=== PATIENT | female | born 1945 | race African-American/Black ===

== ENCOUNTER 2021-09-09 20:03 | Inpatient (IN) | payer MEDICARE, BC ==
[2021-09-09] MEDS ORDERED: Acetaminophen 650 MG Suppository PR PRN (23:02)
[2021-09-09] MEDS ORDERED: Ondansetron PF 4 MG/2 ML Vial IVP PRN (23:02)
[2021-09-09 23:15] LABS: Troponin I 0.097 ng/mL (< 0.028)
[2021-09-10] MEDS ORDERED: Sodium Chloride 0.9% 1,000 ML IV SCH (01:00)
[2021-09-10] MEDS: Sodium Chloride 0.9% 1,000 ML IV SCH ×3 (02:32→20:35)
[2021-09-10] MEDS: Ampicillin/Sulbactam 1.5 GM in Sodium Chloride 0.9% 100 ML IVPB SCH ×4 (02:54→20:35)
[2021-09-10 09:58] LABS: #Lymphocytes 0.8 thou/uL (1.20-3.40); #Monocytes 0.3 thou/uL (0.11-0.59); #Neutrophils 4.9 thou/uL (1.40-6.50); %Eosinophils 0.4 % (0.0-10.0); %Lymphocytes 12.5 % (21.0-51.0); Hemoglobin 8.3 g/dL (12.0-16.0); Mean Corpuscular HGB CONC 33.4 g/dL (32.0-36.0); Mean Corpuscular Hemoglobin 34.3 pg (27.0-31.0); Mean Platelet Volume 6.6 fL (7.4-10.4); Platelet Count 255 thou/uL (130-400); RBC Distribution Width 12.9 % (11.5-14.5); Red Blood Cell (RBC) Count 2.41 mill/uL (4.20-5.40)
[2021-09-10 10:14] LABS: ALT (SGPT) 15 U/L (8-55); AST (SGOT) 16 U/L (5-34); Albumin 2.5 g/dL (3.4-4.8); Alkaline Phosphatase 60 U/L (40-110); Anion Gap 12 mmol/L (10-20); BUN (Urea Nitrogen) 33 mg/dL (9.8-20.1); Bilirubin, Total 0.2 mg/dL (0.2-1.2); Calc. Creatinine Clearance 19 mL/min (70-130); Calcium 8.5 mg/dL (7.8-10.44); Carbon Dioxide 21 mmol/L (23-31); Chloride 116 mmol/L (98-107); Globulin 2.9 g/dL (2.4-3.5); Glucose 94 mg/dL (83-110); Potassium 4.3 mmol/L (3.5-5.1); Protein, Total 5.4 g/dL (5.8-8.1); Sodium 145 mmol/L (136-145)
[2021-09-10] MEDS ORDERED: Diazepam 2 MG TAB PO PRN (18:44)
[2021-09-10] MEDS ORDERED: Ondansetron ODT 4 MG TAB PO PRN (18:44)
[2021-09-10] MEDS ORDERED: Haloperidol 1 MG TAB PO PRN (18:44)
[2021-09-10] MEDS ORDERED: ALPRAZolam 0.25 MG TAB PO PRN (19:05)
[2021-09-10] MEDS: lamoTRIgine 25 MG TAB PO SCH (20:34)
[2021-09-10] MEDS ORDERED: Folic Acid 1 MG TAB PO SCH (21:00)
[2021-09-11] MEDS: Ampicillin/Sulbactam 1.5 GM in Sodium Chloride 0.9% 100 ML IVPB SCH ×3 (01:04→15:46)
[2021-09-11 05:46] LABS: Magnesium 1.9 mg/dL (1.6-2.6)
[2021-09-11] MEDS ORDERED: hydrALAZINE 20 MG/ML VIAL SLOW IVP PRN (06:35)
[2021-09-11] MEDS ORDERED: Ferrous Sulfate 325 MG TAB PO SCH (08:00)
[2021-09-11] MEDS: lamoTRIgine 25 MG TAB PO SCH (08:39)
[2021-09-11] MEDS ORDERED: Docusate 100 MG CAP PO SCH (09:00)
[2021-09-11] MEDS ORDERED: Aspirin 81 mg Enteric Coated Tablet PO SCH (09:00)
[2021-09-11] MEDS ORDERED: Amlodipine 10 MG TAB PO SCH (09:00)
[2021-09-11] MEDS ORDERED: Lansoprazole 3 MG/ML ORAL SUSPENSION PO SCH (09:00)
[2021-09-11] MEDS ORDERED: Docusate Sodium 100 MG/10 ML UDCUP PO SCH ×2 (09:00)
[2021-09-11] MEDS ORDERED: Aspirin Chewable 81 MG TAB PO SCH (09:00)
[2021-09-11] MEDS ORDERED: Allopurinol 300 MG TAB PO SCH (09:00)
[2021-09-11] MEDS ORDERED: Tamsulosin HCl 0.4 MG CAP PO SCH (09:00)
[2021-09-11] MEDS ORDERED: Linaclotide [Linzess] 72 MCG Capsule PO SCH (09:00)
[2021-09-11 10:14] VITALS: BMI 19.2
[2021-09-11] MEDS ORDERED: Labetalol HCl 100 MG/20 ML VIAL SLOW IVP PRN (12:39)
[2021-09-11 15:56] VITALS: BP 148/87; TEMP 97.8
== END 2021-09-11 16:40 | disposition home health service (06) | DRG 64 ==
LOC: ERS 20:03 → NEURO 21:58 → INTOOBSV 21:58 → OBSVTOIN 09-10 18:48
PROVIDERS: ADMIT Family Medicine; ATTEND Family Medicine
PROC: 0T9B70Z Drainage of Bladder with Drainage Device, Via Natural or Artificial Opening (ICD-10-PCS; principal; 2021-09-11)
DX: I62.9 Nontraumatic intracranial hemorrhage, unspecified (principal); J69.0 Pneumonitis due to inhalation of food and vomit; I21.A1 Myocardial infarction type 2; J18.9 Pneumonia, unspecified organism; N18.4 Chronic kidney disease, stage 4 (severe); E46 Unspecified protein-calorie malnutrition; Z68.1 Body mass index [BMI] 19.9 or less, adult; I13.0 Hypertensive heart and chronic kidney disease with heart failure and stage 1 through stage 4 chronic kidney disease, or unspecified chronic kidney disease; G40.909 Epilepsy, unspecified, not intractable, without status epilepticus; M10.9 Gout, unspecified; F03.90 Unspecified dementia, unspecified severity, without behavioral disturbance, psychotic disturbance, mood disturbance, and anxiety; K56.41 Fecal impaction; I50.9 Heart failure, unspecified; E78.00 Pure hypercholesterolemia, unspecified; R33.9 Retention of urine, unspecified; I45.4 Nonspecific intraventricular block; D52.9 Folate deficiency anemia, unspecified; Z88.8 Allergy status to other drugs, medicaments and biological substances; Z88.0 Allergy status to penicillin; Z79.82 Long term (current) use of aspirin; Z79.899 Other long term (current) drug therapy
CPT/HCPCS: 36415; 70450; 80053; 82607; 82746; 83735; 84484; 85025; 93005; 93010; 96374; 96376; 99285; G0378; J0295; J0360; J3490; J7050